=== PATIENT | female | born 2000 | race Caucasian/White ===

== ENCOUNTER 2019-05-01 22:05 | Emergency (ER) | payer BC, OTHER ==
[~2019-05-01] VITALS: Ht 160 cm; Wt 59.0 kg
--- OUTSIDE RECORDS SUMMARY | 2019-05-01 22:13 | XMS REPORT | Summary of Care ---
Author Author Yin Krishna M.D. Organization Unknown Address [address], [place] [id number] Phone Unavailable Care Team Providers Care Economic History Teacher Name Role Phone Yin Krishna M.D. Unavailable Unavailable No Assigned PCP-Pt Confirmed PP Unavailable Unavailable Unavailable Functional Status Functional Status Health Issues* Name Dates Details Functional status health issues are not documented Status: Cognitive Status Health Issues* Name Dates Details Cognitive status health issues are not documented Status: Problems Name Dates Details Oral contraceptive prescribed (V25.01, Z30.011) Status: Active Medications Name Dates Details Ortho Evra 150-35 MCG/24HR PTWK apply 1 patch per week X 3 weeks, then 1 week without patch, each month Quantity: 1 Yin Krishna M.D.* Started 10-Sep-2014 Active3 Patch Weekly Box Allergies and Adverse Reactions Name Dates Details No Known Drug Allergies Status: Active Past Medical History Name Dates Details History of Acute bacterial conjunctivitis (372.03, H10.30) Status: Resolved History of acute bronchitis (V12.69, Z87.09) Status: Resolved History of control (V25.9, Z30.9) Status: Resolved History of Earache on left (388.70, H92.02) Status: Resolved History of fever (V13.89, Z87.898) Status: Resolved History of Vaginal itching (698.1, L29.8) Status: Resolved Procedures Procedure Dates Details Procedures not documented Immunization Name Dates Details Tdap (Adacel) Lot #: [id number] Administered on:21-Mar-2011 HPV (Gardasil) Lot #: [id number] Administered on:14-Sep-2014 Family History Grandmother* Name Dates Details Family history of malignant neoplasm of breast (V16.3, Z80.3) Status: Active Social History Smoking Status* Unknown if ever smoked Vital Signs Date Test Result Details 16-Jan-2016 10:26 BP Systolic 112 mm[Hg] Status: BP Diastolic 66 mm[Hg] Status: Weight 130 lb Status: Results Date Description Value Details Results not documented Plan of Care Planned Observations* Name Dates Details Planned Goals not documented Goal Planned Encounters* Appointment; Provider: Oskar Mckeon On 10-Aug-2015 09:15 * Appointment; Provider: Winston Daugherty On 09-Mar-2011 07:00 Instructions * Instructions not documented Encounters Appointment; Yin Krishna Encounter Diagnosis: Problem not documented On 16-Jan-2016 10:00 Appointment; Yin Krishna Encounter Diagnosis: Problem not documented On 10-Sep-2014 16:15
--- OUTSIDE RECORDS SUMMARY | 2019-05-01 22:13 | XMS REPORT | Summary of Care ---
Author Author Tomi Whipple, Yin Organization Unknown Address [address] [place], [place] [id number] Phone Unavailable Care Team Providers Care Physical Therapy Assistant Name Role Phone Yin Krishna M.D. Unavailable Unavailable Unavailable Unavailable Functional Status Functional Status Health Issues* Name Dates Details Functional status health issues are not documented Status: Cognitive Status Health Issues* Name Dates Details Cognitive status health issues are not documented Status: Problems Name Dates Details control (V25.9, Z30.9) Status: Active Vaginal itching (698.1, L29.8) Status: Active Medications Name Dates Details Ortho Evra 150-35 MCG/24HR Transdermal Patch Weekly apply 1 patch per week X 3 weeks, then 1 week without patch, each month Quantity: 1 Yin Krishna M.D.* Started 10-Sep-2014 Active3 Patch Weekly Box Allergies and Adverse Reactions Name Dates Details No Known Drug Allergies Status: Active Past Medical History Name Dates Details History of Acute bacterial conjunctivitis (372.03, H10.029) Status: Resolved History of acute bronchitis (V12.69, Z87.09) Status: Resolved History of Earache on left (388.70, H92.02) Status: Resolved History of fever (V13.89, Z87.898) Status: Resolved Procedures Procedure Dates Details Procedures not documented Immunization Name Dates Details Tdap (Adacel) Lot #: [id number] Administered on:21-Mar-2011 HPV (Gardasil) Lot #: [id number] Administered on:14-Sep-2014 Family History Grandmother* Name Dates Details Family history of malignant neoplasm of breast (V16.3, Z80.3) Status: Active Social History Smoking Status* Unknown if ever smoked Vital Signs Date Test Result Details No Known Vitals to report Results Date Description Value Details Results not documented Plan of Care Planned Observations* Name Dates Details Planned Goals not documented Goal Planned Encounters* Appointment; Provider: Winston Daugherty On 09-Mar-2011 07:00 Instructions * Instructions not documented Encounters Appointment; Yin Krishna Encounter Diagnosis: Problem not documented On 10-Sep-2014 16:15
--- OUTSIDE RECORDS SUMMARY | 2019-05-01 22:13 | XMS REPORT | Summary of Care ---
Author Author Yin Krishna M.D. Unknown Address Unknown Phone Unavailable Care Team Providers Care Crisis Therapist Name Role Phone Yin Krishna M.D. Unavailable Unavailable Colleen Huerta Unavailable Unavailable Unavailable Unavailable Functional Status Name Dates Details Functional status health issues are not documented Status: Name Dates Details Cognitive status health issues are not documented Status: Problems Name Dates Details Well woman exam with routine gynecological exam (V72.31, Z01.419) Status: Active Encounter for repeat prescription of oral contraceptives (V25.01, Z30.41) Status: Active Medications Name Dates Details Previfem 0.25-35 MG-MCG Oral Tablet take one tablet by mouth every day Quantity: 1 Yin Krishna M.D. * Start 29-Jun-2016 Active 28 Tablet Disp Pack Allergies and Adverse Reactions Name Dates Details No Known Drug Allergies (Allergy) Status: Active Past Medical History Name Dates Details History of Acute bacterial conjunctivitis (372.03, H10.30) Status: Resolved History of acute bronchitis (V12.69, Z87.09) Status: Resolved History of control (V25.9, Z30.9) Status: Resolved History of Earache on left (388.70, H92.02) Status: Resolved History of fever (V13.89, Z87.898) Status: Resolved History of Oral contraceptive prescribed (V25.01, Z30.011) Status: Resolved History of Vaginal itching (698.1, L29.8) Status: Resolved Procedures Procedure Dates Details Procedures not documented Immunization Name Dates Details Tdap (Adacel) Lot #: [id number] on: 21-Mar-2011 HPV (Gardasil) Lot #: [id number] on: 14-Sep-2014 Family History Name Dates Details Family history of malignant neoplasm of breast (V16.3, Z80.3) Status: Active Social History Name Dates Details - Status: Name Dates Details Never smoker Vital Signs Date Test Result Details 25-Feb-2017 16:23 BP Systolic 124 mm[Hg] Status: Comments: Location: ; Position: BP Diastolic 78 mm[Hg] Status: Comments: Location: ; Position: Heart Rate 84 /min Status: Comments: Location: ; Height 63 in Status: Weight 134 lb Status: Body Mass Index Calculated 23.74 kg/m2 Status: Body Surface Area Calculated 1.63 m2 Status: Results Date Description Value Details Results not documented Plan of Care Name Dates Details Planned Observations Planned Goals not documented Planned Encounters Appointment; Provider: Yin Krishna M.D. On 09:00 Instructions Name Dates Details Instructions not documented Encounters Appointment; Yin Krishna M.D. Encounter Diagnosis: Problem not documented On 16-Jan-2016 10:00
--- OUTSIDE RECORDS SUMMARY | 2019-05-01 22:13 | XMS REPORT | Summary of Care ---
Author Author Tomi Whipple, Yin Organization Unknown Address [address] [place], [place] [id number] Phone Unavailable Care Team Providers Care Employee'S Representative Name Role Phone Yin Krishna M.D. Unavailable [...] Name Dates Details Tdap (Adacel) Lot #: [id number] Administered on:21-Mar-2011 HPV (Gardasil) Lot #: [id number] Administered on:14-Sep-2014 Family History Grandmother* Name Dates [...]
[2019-05-01] MEDS ORDERED: NS IV 1000 ML 1,000 ML ONE (22:18)
[2019-05-01] MEDS ORDERED: NS IV 1000 ML 1,000 ML IV STA (22:23)
--- NOTE | 2019-05-01 22:27 | ED Lower Extremity ---
General Chief Complaint: Lower Extremity Stated Complaint: POSS BROKEN ANKLE Source: patient History of Present Illness Date Seen by Provider: May 01, 2019 Time Seen by Provider: 22:07 Initial Comments 18 yo F presenting with right ankle pain after rolling it while playing softball tonight. She has not drank much fluid tonight while playing softball and last ate around 1400. She is also feeling light headed. Her LMP was 1-2 weeks ago and was normal for her. She denies hitting her head or having any other injuries. She has severe pain to right ankle and swelling present. She denies numbness or tingling. She has not been able to bear weight on the right leg. She has not had prior injury to the leg or ankle. Allergies and Home Medications Allergies Coded Allergies: No Known Drug Allergies (Unverified , 05/01/19) Home Medications Hydrocodone Bit/Acetaminophen 1 Tab Tab, 1 EACH PO Q6H PRN for PAIN-SEVERE Prescribed by: HELENE YEAGER on 05/01/19 3860 Patient Home Medication List Home Medication List Reviewed: Yes Review of Systems Constitutional: see HPI EENTM: no symptoms reported Respiratory: no symptoms reported Cardiovascular: no symptoms reported Gastrointestinal: no symptoms reported Genitourinary: no symptoms reported Musculoskeletal: see HPI Skin: see HPI Psychiatric/Neurological: Anxiety Past Hzwcnsz-Gpqpno-Pbquts Hx Past Med/Social Hx: Reviewed Nursing Past Med/Soc Hx Patient Social History Recent Foreign Travel: No Contact w/Someone Who Travel: No Physical Exam Vital Signs Vital Signs - First Documented 05/01/19 22:05 Temp 97.9 Pulse 80 Resp 18 B/P (MAP) 65/48 (54) Pulse Ox 100 O2 Delivery Room Air Capillary Refill : Height, Weight, BMI Height: '" Weight: lbs. oz. kg; BMI Method: General Appearance: WD/WN, moderate distress HEENT: PERRL/EOMI, pharynx normal Neck: non-tender, full range of motion, supple, normal inspection Cardiovascular: normal peripheral pulses, regular rate, rhythm Respiratory: chest non-tender, lungs clear, normal breath sounds Gastrointestinal: non tender, soft Ankles: right ankle bone tenderness, right ankle limited range of motion, right ankle pain, right ankle soft tissue tenderness, right ankle swelling Neurologic/Tendon: normal sensation, normal motor functions, normal tendon functions Neurologic/Psychiatric: alert, normal mood/affect, oriented x 3 Skin: normal color, warm/dry Progress/Results/Core Measures Results/Orders My Orders Orders - HELENE YEAGER MD Iv 1000 Ml (Sodium Chloride 0.9%) (05/01/19 22:18) Iv/Invasive Line Insertion .IV start (05/01/19 22:23) Ankle 3 View Right (05/01/19 22:23) Ns Iv 1000 Ml (Sodium Chloride 0.9%) (05/01/19 22:23) Ketorolac Injection (Toradol Injection) (05/01/19 22:30) Ice: Apply To Affected Area (05/01/19 22:23) Elevate Affected Extremity (05/01/19 22:23) Crutches (05/01/19 23:25) Orthopedic Equiment (05/01/19 23:25) Fentanyl Injection (Sublimaze Injection (05/02/19 00:00) Rx-Hydrocodone/Apap 5-325 Mg (Rx-Vicodin (05/02/19 00:00) Medications Given in ED Vital Signs/I&O 05/01/19 05/02/19 22:05 00:10 Temp 97.9 Pulse 80 72 Resp 18 18 B/P (MAP) 65/48 (54) 121/77 (92) Pulse Ox 100 100 O2 Delivery Room Air Room Air Progress Progress Note #1: Progress Note With her hypotension and not drinking much fluid this evening while playing softball in the heat, in addition to the ankle injury will have her get an IVF bolus while obtaining imaging of her ankle. Try Toradol for pain. Ice and elevat e extremity. Progress Note #2: Progress Note Right ankle xrays on my review of the 3 view films do demonstrate fracture of the medial malleolus of the distal tibia. She has stable ankle mortise. Will place pt in Cam Walker boot and have her in crutches for non weight bearing. Discharge to home and have her follow up with Ortho or Dil[facility] Howard or Ortho of her choice. Check with [facility] or establish care and refer from there. Ice, elevate and pain management in addition to the non weight bearing and crutches with the cam walker. Advised to use the cam walker at all times and treat it as though it was a cast and not to take it off except to wash her leg with a sponge bath. Departure Impression Primary Impression: Fracture of medial malleolus of right tibia Qualified Codes: S82.54XA - Nondisplaced fracture of medial malleolus of right tibia, initial encounter for closed fracture Additional Impression: Dehydration Disposition: 01 HOME, SELF-CARE Condition: Stable Departure-Patient Inst. Decision time for Depature: 23:49 Referrals: NO,LOCAL PHYSICIAN (PCP) Primary Care Physician Patient Instructions: Ankle Fracture (DC), Going Up and Down Curbs or Stairs With a Walker or Crutches, How to Use Crutches Add. Discharge Instructions: Wear boot at all times. Use crutches and do not bear any weight on your right leg. Follow up with the Orthopedics clinic this next week about your ankle fracture All discharge instructions reviewed with patient and/or family. Voiced understanding. Scripts Hydrocodone Bit/Acetaminophen (Hydrocodone/Acetaminophen 5/325mg Tablet) 1 Tab Tab 1 EACH PO Q6H PRN for PAIN-SEVERE MDD 10 for 5 Days, #20 TAB 0 Refills Prov: HELENE YEAGER MD 05/01/19 HELENE YEAGER MD May 01, 2019 22:27
[2019-05-01] MEDS ORDERED: KETOROLAC 30 MG/ML VIAL IVP ONE (22:30)
[2019-05-01] MEDS ORDERED: ACHD5005 PO (23:50)
[2019-05-02] MEDS ORDERED: fentaNYL INJECTION 100 MCG/2 ML AMP IVP ONE
[2019-05-02] MEDS ORDERED: RX-HYDROCODONE/APAP 5/325 MG #4 TAB PK PO PRN
[2019-05-02 00:10] VITALS: BP 121/77
--- NOTE | 2019-05-02 07:43 | Diagnostic Imaging Report ---
INDICATION: Right ankle injury. COMPARISON: None. FINDINGS: 3 views of right ankle demonstrate nondisplaced medial malleolus fracture. The distal fibula and ankle mortise are intact. There is no foreign body. IMPRESSION: Medial malleolus fracture. Dictated by: Dictated on workstation # [id number]
== END 2019-05-02 00:10 | disposition home or self-care (01) ==
LOC: ER FS 22:09
DX: S82.54XA Nondisplaced fracture of medial malleolus of right tibia, initial encounter for closed fracture (principal); E86.0 Dehydration; X50.0XXA Overexertion from strenuous movement or load, initial encounter; Y93.64 Activity, baseball
CPT/HCPCS: 73610

== ENCOUNTER 2022-10-09 04:07 | Emergency (ER) | payer BC ==
[~2022-10-09] VITALS: Ht 160 cm; Wt 74.3 kg
[~2022-10-09 04:07] MED LIST: ACHD5005 PO
[2022-10-09 04:14] VITALS: BP 131/87
--- NOTE | 2022-10-09 04:25 | ED General ---
General Chief Complaint: Overdose Stated Complaint: POSS OD History of Present Illness Date Seen by Provider: Oct 09, 2022 Time Seen by Provider: 04:24 Initial Comments 20-year-old female is here with concerns for overdose on medication she took today for ear pain. Patient was started on antibiotics and medications few days ago by her PCP for her ear infection. Today she took Excedrin and menstrual complete in the 8 morning, and NyQuil and menstrual complaint right before bed. Patient is concerned because she started having intermittent abdominal pain. Patient has not eaten anything all day except having lasagna for dinner. Denies nausea and vomiting, diarrhea, fever, rashes. Patient is alert and oriented x3 and is speaking in clear sentences. Vitals are stable in the ER. Allergies and Home Medications Allergies Coded Allergies: No Known Drug Allergies (Unverified , 05/01/19) Patient Home Medication List Home Medication List Reviewed: Yes Hydrocodone Bit/Acetaminophen (Lortab 5 Mg Tablet) 1 Tab Tab, 1 EACH PO Q6H PRN for PAIN-SEVERE Prescribed by: HELENE YEAGER on 05/01/19 8210 Review of Systems Review of Systems Constitutional: no symptoms reported EENTM: no symptoms reported Respiratory: no symptoms reported Cardiovascular: no symptoms reported Gastrointestinal: abdominal pain (Mild epigastric pain) Genitourinary: no symptoms reported Musculoskeletal: no symptoms reported Skin: no symptoms reported Psychiatric/Neurological: No Symptoms Reported Hematologic/Lymphatic: No Symptoms Reported Immunological/Allergic: no symptoms reported Past Vrftczj-Ugbkdq-Skwrhq Hx Patient Social History Tobacco Use?: No Substance use?: No Alcohol Use?: No Pt feels they are or have been: No Past Medical History Surgeries: No Respiratory: No Cardiac: No Neurological: No Genitourinary: No Gastrointestinal: No Musculoskeletal: No Endocrine: No HEENT: No Cancer: No Psychosocial: No Integumentary: No Blood Disorders: No Physical Exam Vital Signs Vital Signs - First Documented 10/09/22 04:14 Temp 36.3 Pulse 88 Resp 16 B/P (MAP) 131/87 (102) Pulse Ox 98 O2 Delivery Room Air Capillary Refill : Height, Weight, BMI Height: 5'3.00" Weight: 130lbs. oz. 58.412804wb; BMI Method:Stated General Appearance: No Apparent Distress, WD/WN, Anxious HEENT: PERRL/EOMI, Normal ENT Inspection Respiratory: Chest Non Tender, Lungs Clear, Normal Breath Sounds Cardiovascular: Regular Rate, Rhythm Gastrointestinal: Normal Bowel Sounds, Non Tender, Soft Neurologic/Psychiatric: Alert, Oriented x3, No Motor/Sensory Deficits Skin: Normal Color Progress/Results/Core Measures Suspected Sepsis SIRS Temperature: Pulse: Respiratory Rate: Blood Pressure / Mean: Results/Orders Vital Signs/I&O 10/09/22 04:14 Temp 36.3 Pulse 88 Resp 16 B/P (MAP) 131/87 (102) Pulse Ox 98 O2 Delivery Room Air Capillary Refill : Progress Note : Progress Note 1. ACCIDENTAL MEDICATION USAGE: -Patient's total intake of all the medications she took today has a total of 3100 mg of acetaminophen total, which is still under the 4 g max per day. -Reassurance, and advised patient not to take all these medications together. Also advised patient to take medications with food instead of on an empty stomach. Patient only had dinner today she did not eat any other food and took NSAIDs in the morning on an empty stomach. -Follow-up with PCP in the next 7 days Departure Impression Primary Impression: Accidental medication error Disposition: 01 HOME, SELF-CARE Condition: Stable Admissions Decision to Admit Reason: Admit from ER (General) Departure-Patient Inst. Referrals: NO,LOCAL PHYSICIAN (PCP/Family) Primary Care Physician Patient Instructions: Acetaminophen Poisoning (DC) Add. Discharge Instructions: - Reassurance - Soft bland foods for the next couple of days - F/u with PCP in 3 to 7 days All discharge instructions reviewed with patient and/or family. Voiced understanding. CLIFFORD RATLIFF MD Oct 09, 2022 04:25
== END 2022-10-09 04:44 | disposition home or self-care (01) ==
LOC: EDUNIT# 04:07 → ER FS 04:11
DX: T39.1X1A Poisoning by 4-Aminophenol derivatives, accidental (unintentional), initial encounter (principal); R10.13 Epigastric pain; Z28.310 Unvaccinated for COVID-19
CPT/HCPCS: 99281